=== PATIENT | female | born 2000 | race Caucasian/White ===

== ENCOUNTER 2018-01-04 04:30 | Inpatient (IN) ==
[2018-01-04] MEDS ORDERED: Lidocaine 1% 20 ML MDV INFILT PRN (04:32)
[2018-01-04] MEDS ORDERED: Naloxone 0.4 MG/ML INJ IVP PRN (04:32)
[2018-01-04] MEDS ORDERED: Famotidine 20 MG/2 ML VIAL IVP PRN (04:32)
[2018-01-04] MEDS ORDERED: Ondansetron 4 MG/2 ML VIAL IVP PRN (04:32)
[2018-01-04] MEDS ORDERED: Metoclopramide 10 MG/2 ML VIAL IVP PRN (04:32)
[2018-01-04] MEDS ORDERED: Penicillin G Potassium 5,000,000 UNIT in 0.9 % Sodium Chloride Mini Bag 100 ML IVPB ONE (04:36)
[2018-01-04] MEDS ORDERED: Ringers Solution, Lactated 1,000 ML IVC SCH (04:45)
--- NOTE | 2018-01-04 04:55 | OB/GYN History & Physical ---
Date of Encounter: 01/04/18 Time of Encounter: 04:53 Assessment and Plan (1) 39 weeks gestation of Current visit: Yes Status: Acute admitted for delivery (2) Spontaneous rupture of membranes Current visit: Yes Status: Acute admitted for delivery patient may have epidural if desires for pain management (3) Group B streptococcal carriage complicating Current visit: Yes Status: Acute GBS prophylaxis History of Present Illness Chief complaint: SROM HPI: Ms. John is a 17 year old female at 39w0d presents to labor and delivery with complaints of SROM. Patient reports water broke at 0300. Fluid has been clear. Patient reports +FM and irregular contractions. Blood type: O Positive Rubella: Immune Hep B: Nonreactive GBS: Positive Past Med Surg Social Fam HX - Past Medical History Source: patient Medical history: no medical history Psychiatric history: depression - Past Surgical History Surgical History: no surgical history - Social History Smoking Status: Current every day smoker Smokeless Tobacco Status: No Alcohol use: none Current living situation: Home - Independent Activity Level: Independent ambulation Recent Out of Country Travel Within the Last 8 Weeks: No Exposure or Possible Exposure to Illness During Travel: No Obstetrical History - Pregnancies : 2 Para: 0 Term: 0 : 0 Ab's: 1 Livin Medications and Allergies Ciprofloxacin [Cipro] 500 mg PO BID #14 tablet 11/13/16 [Rx] Phenazopyridine [Pyridium] 100 mg PO TID #9 tablet 11/13/16 [Rx] Tamsulosin [Flomax] 0.4 mg PO DAILY #5 cap.er.24h 11/13/16 [Rx] 3 Allergy/AdvReac Type Severity Reaction Status Date / Time Amoxicillin [From Augmentin] Allergy Rash Verified 11/13/16 12:28 clavulanic acid Allergy Rash Verified 11/13/16 12:28 [From Augmentin] Review of System OB - Constitutional Constitutional ROS IM: no chills, no fever(s), no headache(s) - Cardiovascular Cardiovascular: edema, no chest pain, no lightheadedness, no palpitations, no syncope - Respiratory Respiratory: no cough - Gastrointestinal Gastrointestinal: no abdominal pain, no constipation, no cramping, no diarrhea, no heartburn, no nausea, no vomiting - Genitourinary Genitourinary: vaginal discharge, no abnormal vaginal bleeding, no dysuria, no flank pain, no urinary frequency, no urinary incontinence, no urinary urgency, no vaginal odor, no vaginal pruritis Exam - Constitutional Constitutional: well developed, well nourished, no acute distress, average body habitus - HEENT HEENT: Normocephaly, Mucus Membranes Moist - Neck Neck exam: full ROM, supple - Lungs Respiratory exam: CTAB - Cardiovascular Cardiovascular exam: RRR, +S1, +S2 - Abdomen Abdomen: Present: bowel sounds normal, gravid, non tender - Extremities Extremities exam: full ROM, normal capillary refill, pedal edema Deep Tendon Reflex Grade: 2+ Normal - Cervix Dilation: 6 Effacement: 80 Station: -1 - Uterus Uterus exam: Present: normal size, normal contour - Anus/Rectum Anus/Rectum: Present: normal perianal skin - Comments Comments: FHR 145 bpm moderate variability. Contractions 1-2.5 min apart Results All other labs normal. - VTE Reasons for not Prescribing Prophylaxis: Treatment not Indicated - Low risk for VTE
[2018-01-04 05:26] LABS: Basophils % 0.2 %; Eosinophils # 0.3 K/mcL (0.0-0.6); Eosinophils % 2.5 %; Hematocrit 34.3 % (35.3-44.9); Hemoglobin 11.7 g/dL (11.5-15.4); Immature Granulocytes % 0.8 % (0-4); Lymphocytes # 2.8 K/mcL (0.6-4.6); Lymphocytes % 21.3 %; Mean Corpuscular HGB Conc 34.1 g/dL (31.6-35.5); Mean Corpuscular Volume 85.1 fL (83.0-100.0); Mean Platelet Volume 11.8 fL (9.4-12.4); Monocytes # 0.9 K/mcL (0.0-1.3); Monocytes % 6.5 %; Neutrophils # 9.2 K/mcL (1.6-8.9); Platelet Count 235 K/mcL (140-400); Red Blood Count 4.03 M/mcL (3.82-4.97); Segmented Neutrophils % 68.7 %
[2018-01-04 05:35] LABS: Amphetamine Screen,Urine Negative ng/mL (Cutoff=1000); Barbiturate Screen,Urine Negative ng/mL (Cutoff=200); Benzodiazepines Screen,Urine Negative ng/mL (Cutoff=200); Cannabinoid Screen,Urine Negative ng/mL (Cutoff = 50); Cocaine Screen,Urine Negative ng/mL (Cutoff= 300); Opiate Screen,Urine Negative ng/mL (Cutoff=300); Phencyclidine Screen,Urine Negative ng/mL (Cutoff=25)
[2018-01-04] MEDS: *HR* Nalbuphine 10 MG/ML AMPUL IVP PRN ×2 (05:45→07:36)
[2018-01-04] MEDS ORDERED: Oxytocin 20 units/ LR 1000 mL 20 UNIT/1,000 ML BAG IVC SCH ×2 (07:00→18:06)
[2018-01-04 07:26] LABS: Alanine Aminotransferase 45 Units/L (7-52); Aspartate Amino Transferase 31 Units/L (13-39); BUN/Creatinine Ratio 11 (6-26); Blood Urea Nitrogen 7 mg/dL (6-20); Lactate Dehydrogenase 149 Units/L (140-271); Uric Acid 6.4 mg/dL (2.3-7.6); eGFR For African Americans > 60; eGFR For Non-African Americans > 60
[2018-01-04] MEDS ORDERED: Acetaminophen 325 MG TABLET PO PRN ×2 (08:31→18:06)
[2018-01-04] MEDS: Penicillin G Potassium 2,500,000 UNIT in 0.9 % Sodium Chloride 100 ML IVPB SCH ×2 (09:10→13:18)
--- NOTE | 2018-01-04 10:24 | OB Labor Progress Note ---
Date of Encounter: 01/04/18 Time of Encounter: 10:22 Labor Progress Note - Subjective Subjective: Patient reports feeling pressure like she needs to push. Patient requesting SVE. - Cervix Cervix: 7.5/90/0 - Heart Tones Heart Tones: 145 bpm moderate variability - [place]: 2-4 min apart - Interventions Interventions: SVE, repositioned - Plan Plan: Continue labor management. Anticipate
[2018-01-04] MEDS ORDERED: *HR* FentaNYL (PF) 100 MCG/2 ML VIAL EP ONE (10:46)
[2018-01-04] MEDS ORDERED: *HR* Ropivacaine/PF 0.2% 20 ML VIAL EP ONE (10:46)
[2018-01-04] MEDS ORDERED: Epidural Premix (fent/bupiv) 110 ML EP ONE (10:48)
[2018-01-04] MEDS ORDERED: *HR* FentaNYL (PF) 100 MCG/2 ML VIAL ONE (10:49)
[2018-01-04] MEDS ORDERED: *HR* Ropivacaine/PF 0.2% 20 ML VIAL ONE (10:49)
[2018-01-04] MEDS ORDERED: Epidural Premix (fent/bupiv) 110 ML EP SCH (11:00)
--- NOTE | 2018-01-04 11:38 | Anesthesia Evaluation PreOp ---
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: Denies Any Significant HX Other Medical History: Renal (stones), GERD, Other (depression) Anesthesia History: No Prior Anesthetic Complications, Past Anesthesia (kidney stone BES) : Yes Test: Positive Alcohol Use: none Drug use: none Medications and Allergies Ciprofloxacin [Cipro] 500 mg PO BID #14 tablet 11/13/16 [Rx] Phenazopyridine [Pyridium] 100 mg PO TID #9 tablet 11/13/16 [Rx] Tamsulosin [Flomax] 0.4 mg PO DAILY #5 cap.er.24h 11/13/16 [Rx] 3 Allergy/AdvReac Type Severity Reaction Status Date / Time Amoxicillin [From Augmentin] Allergy Rash Verified 11/13/16 12:28 clavulanic acid Allergy Rash Verified 11/13/16 12:28 [From Augmentin] - Meds/Allergy Pre-op Review Medications Reviewed: Yes Allergies Reviewed: Yes Beta Blockers on Current Med List: No Anesthesia Results - Labs 01/04/18 04:50 01/04/18 04:50 Anesthesia Exam 124/76 88 15 fht 134 Height: 5"6" Weight: 101 k NPO (# of Hours): 2 Pain Scale: 8 Pain Scale Used: Numeric (1 - 10) - HEENT Pupil (Motor): Pupils equal Mallampati: II Teeth: Missing Oral Opening: Greater than 3 - RICE DRIER OPERATOR LOC: Oriented RICE DRIER OPERATOR Motor: Normal RUE, Normal LUE, Normal RLE, Normal LLE, Normal Face RICE DRIER OPERATOR Sensory: Normal: RUE, LUE, RLE, LLE, Face - Cardiac Rhythm: Regular Murmur: None - Pulmonary Breath Sounds: bilateral Clear Respiratory Effort: Symmetrical Anesthesia Assess/Plan ASA Score: 2 Modified [place] Scale for Level of Consciousness: Cooperative, oriented, and tranquil Anesthetic Plan: Regional Autologous Blood: No Monitoring Plan: Standard Monitors Recovery Plan: Other (risks discussed questions answered, consented)
--- NOTE | 2018-01-04 11:42 | Anesthesia Procedures ---
Date of Encounter: 01/04/18 Time of Encounter: 11:40 Procedures: Anesthesia - Epidural/Spinal Patient ID/Chart reviewed: Yes OB Eval: : 39 OB Eval: Hx Para: 2 OB Eval: Dilated at (cm): 0 OB Eval: Contractions: Non-stressed pattern Consent Obtained: Yes Supplemental Oxygen: None/Room Air Site Prep: Aseptic Technique, Sterile prep and drape, 0.5% Chlorhexidine/Alcohol Patient position: upright Local Anesthetic: Lidocaine 1% Amount of Local Anesthetic used: 4 Touhy Needle Gauge: 18 Touhy Needle Depth (cm): 9 Catheter Depth at Skin (cm): 20 Test Dose (1.5% Lido + Epi): Volume given (mls): 3 (+ test, heme present, withdrew cath, reinsert one level below) Test Dose Result: Positive Loading Dose: Fentanyl (mcg): 100 Loading Dose: Other: rop 0.2% 10cc Loading Dose Administered: Thru Touhy Needle Infusion Med: 0.125% Bupivacaine w/ 2 mcg/ml Fentanyl Infusion Rate (mls/hr): 15 (pcea 5 cc q 30") Catheter Secured in Place: Tegaderm Interspace Used: L2-L3 Loss of Resistance (LAMAR): Yes Blood: Yes (first cath) CSF: No Paresthesia: No Procedure: aseptic, tolerated both insertions well, VSS effective Vitals + FHT's: 132/78 88 16 fht 134
--- NOTE | 2018-01-04 12:29 | OB Labor Progress Note ---
Date of Encounter: 01/04/18 Time of Encounter: 12:27 Labor Progress Note - Subjective Subjective: Patient resting with epidural in place. Patient reports feeling pressure at this time with contractions. - Cervix Cervix: 9/100/0 - Heart Tones Heart Tones: 125 bpm moderate variability +15x15 accels variables noted. - [place]: 1.5-2 min apart - Interventions Interventions: SVE, repositioned with peanut ball right lateral. - Plan Plan: Continue labor management anticipate
--- NOTE | 2018-01-04 15:34 | OB/GYN Procedure Note ---
Delivery - Delivery Date: 01/04/18 Provider: Thais Jorgensen Intrapartum events: none Delivery induction: none Delivery augmentation: pitocin Delivery monitor: external FHT, external uterine Anesthesia: epidural Quantitated Blood Loss: 300 - (s) A Infant Delivery Date: 01/04/18 Delivery Time: 15:09 Presentation: vertex Position: MORRIS Route of delivery: Gender: Male Viability: Viable Pounds: 8 Ounces: 12 Weight Gram: 3985 kg at 1 minute: 7 at 5 mins: 8 Shoulder Dystocia: not encountered Specimens collected: cord blood Placenta: spontaneous, uterine exploration Cord: 3 umbilical vessels - Repair Episiotomy: none Laceration Description: Perineal - 2nd Degree (repaired with 3-0 vicryl) - Complications Delivery complications: none - Disposition Mom disposition: stable in LDR disposition: stable in LDR - Comments Comments: Called to LDR patient feeling pressure and urge to push. Patient placed in stirrups and prepped for vaginal delivery. Under maternal effort patient spontaneously delivered a viable male over a second degree perineal laceration. No nuchal cord, shoulder dystocia or meconium was encountered. Infant was placed on maternal abdomen. Cord was clamped and cut. taken to warmer for transition. Cord blood was collected. A Second degree laceration was repaired with 3-0 vicryl. Placenta delivered spontaneously and intact. Infant placed skin to skin with patient for kangaroo care. Pericare provided. Both mother and in LDR for 2 hour recovery.
[2018-01-04] MEDS ORDERED: Lanolin 7 G OINT...G. TP PRN (18:06)
[2018-01-04] MEDS ORDERED: *HR* HYDROcodone/Acet 5/325 mg TABLET PO PRN (18:06)
[2018-01-04] MEDS ORDERED: Benzocaine/Menthol 56 GM AEROSOL SPRAY TP PRN (18:06)
[2018-01-04] MEDS: Ibuprofen 600 MG TABLET PO PRN (19:46)
[2018-01-05] MEDS: Ibuprofen 600 MG TABLET PO PRN (08:11)
--- NOTE | 2018-01-05 08:11 | Discharge Summary ---
Date of Encounter: 01/05/18 Time of Encounter: 08:09 - Discharge Diagnosis (1) 39 weeks gestation of Priority: Secondary Status: Acute (2) Spontaneous rupture of membranes Priority: Secondary Status: Acute (3) Group B streptococcal carriage complicating Priority: Secondary Status: Acute (4) Vaginal delivery Priority: Primary Status: Acute Comments: Continue routine care discharge home today follow up with JAIR Patricia in 4-6 weeks (5) Second degree perineal laceration during delivery Priority: Secondary Status: Acute Comments: Continue routine perineal care (6) Breast feeding status of mother Priority: Secondary Status: Acute Comments: support prn - Discharge Medications Prescriptions: Ibuprofen [Motrin] 600 mg PO Q6HR PRN #60 tablet PRN Reason: Cramping Breast Pump [BREAST PUMP] 1 each .ROUTE AD #1 each Home Medications: Tamsulosin [Flomax] 0.4 mg PO DAILY #5 cap.er.24h 11/13/16 [Rx] Benzocaine/Menthol [place] [Dermoplast [place]] 1 appl TP QID PRN aerosol 01/05/18 [Rx] Breast Pump [BREAST PUMP] 1 each .ROUTE AD #1 each 01/05/18 [Rx] Docusate [Colace] 100 mg PO BID capsule 01/05/18 [Rx] Ibuprofen [Motrin] 600 mg PO Q6HR PRN #60 tablet 01/05/18 [Rx] Lanolin [Lansinoh] 1 appl TP TID PRN oint...g. 01/05/18 [Rx] Vit/FA 1 each PO DAILY tablet 01/05/18 [Rx] Allergies/Adverse Reactions: 3 Allergy/AdvReac Type Severity Reaction Status Date / Time Amoxicillin [From Augmentin] Allergy Rash Verified 11/13/16 12:28 clavulanic acid Allergy Rash Verified 11/13/16 12:28 [From Augmentin] Data Procedures and tests throughout hospitalization: Laboratory Tests 01/04/18 01/04/18 01/04/18 04:50 04:50 05:00 WBC 13.3 H RBC 4.03 Hgb 11.7 Hct 34.3 L MCV 85.1 MCH 29.0 MCHC 34.1 RDW 15.0 H Plt Count 235 MPV 11.8 Immature Gran % 0.8 Seg Neutrophils % 68.7 Lymphocytes % 21.3 Monocytes % 6.5 Eosinophils % 2.5 Basophils % 0.2 Neutrophils # 9.2 H Lymphocytes # 2.8 Monocytes # 0.9 Eosinophils # 0.3 Basophils # 0.0 BUN 7 Creatinine 0.64 Est GFR ( Amer) > 60 Est GFR (Non-Af Amer) > 60 BUN/Creatinine Ratio 11 Uric Acid 6.4 AST 31 ALT 45 Lactate Dehydrogenase 149 Urine Opiates Screen Negative Ur Barbiturates Screen Negative Ur Phencyclidine Scrn Negative Ur Amphetamines Screen Negative U Benzodiazepines Scrn Negative Urine Cocaine Screen Negative U Marijuana (THC) Screen Negative Date of admission: 01/04/18 04:30 Primary care physician: Keely Alfaro Consults: 01/04/18 18:06 Consult to Front End Drupal Developer [CONS] Routine Comment: Vaginal delivery, consult needed Discharging clinician: Thais Jorgensen Anticipated date of discharge: 01/05/18 - Patient Status Disposition: Home, Self-Care Condition: Good Functional capacity at discharge: independent ambulation - Discharge Instructions Follow Up With: Keely Alfaro [Primary Care Provider] - Thais Jorgensen CNM [Non-Partnered Physician] - - Diet and Activity Activity: increase activity as tolerated Diet: regular diet Hospital Course Reason for admission: active labor, rupture of membranes Delivery: Episiotomy: none Laceration: 2nd degree Other procedures: none complications: none Discharge diagnosis: IUP at term delivered [place] baby: male (breast feeding) Time Attestation: Total time spent providing and/or coordinating discharge services: Time Spent: Less than 30 minutes Exam - Constitutional Vitals: Temp Pulse Resp BP Pulse Ox 98.1 F 72 14 115/66 98 01/05/18 04:15 01/05/18 04:15 01/05/18 04:15 01/05/18 04:15 01/05/18 04:15 General appearance IM: A&O X 3, pleasant, answers questions appropriately - Respiratory Respiratory exam: Present: CTAB - Cardiovascular Cardiovascular exam IM: Present: RRR, +S1, +S2 - GI/Abdominal GI/Abdominal exam IM: normal bowel sounds - Uterine Tone: Firm Uterus Position: At Umbilicus, Midline - Extremities Exam Extremities exam IM: Present: full ROM, pedal edema (2+ bilateral) - Neurological Exam Neurological exam: alert, oriented X3, reflexes normal
[2018-01-05] MEDS ORDERED: Prenatal Vit/FA 1 EACH TABLET PO SCH (09:00)
[2018-01-05 10:14] VITALS: BP 115/69
== END 2018-01-05 18:30 | disposition home or self-care (01) | DRG 775 ==
LOC: 1NENULAB 04:30 → 1NENUOBS 18:04
PROVIDERS: ADMIT Advanced Practice Midwife; ATTEND Advanced Practice Midwife